=== PATIENT | female | born 1960 | race Caucasian/White ===

== ENCOUNTER → 2024-01-06 10:25 | Outpatient (REF) | payer MEDICARE, OTHER, SELFPAY | LOC: RCS 10:25 | PROVIDERS: ATTENDING PHYSICIAN Internal Medicine Cardiovascular Disease; FAMILY PHYSICIAN Family Medicine | DX: R03.0 Elevated blood-pressure reading, without diagnosis of hypertension (principal); R06.09 Other forms of dyspnea | CPT/HCPCS: 93017 ==

== ENCOUNTER → 2024-01-14 08:51 | Outpatient (REF) | payer MEDICARE, SELFPAY | LOC: RCS 08:51 | PROVIDERS: ATTENDING PHYSICIAN Internal Medicine Cardiovascular Disease; FAMILY PHYSICIAN Family Medicine | DX: R03.0 Elevated blood-pressure reading, without diagnosis of hypertension (principal); R06.09 Other forms of dyspnea | CPT/HCPCS: 93306 ==

== ENCOUNTER → 2024-01-22 10:56 | Outpatient (REF) | payer MEDICARE, SELFPAY | LOC: WDC 10:56 | PROVIDERS: ATTENDING PHYSICIAN Family Medicine | DX: Z12.31 Encounter for screening mammogram for malignant neoplasm of breast (principal) | CPT/HCPCS: 77063; 77067 ==

== ENCOUNTER → 2024-02-20 07:45 | Outpatient (REF) | payer MEDICARE, SELFPAY | LOC: PAVMRI 07:45 | PROVIDERS: ATTENDING PHYSICIAN Orthopaedic Surgery Hand Surgery; FAMILY PHYSICIAN Family Medicine | DX: M75.122 Complete rotator cuff tear or rupture of left shoulder, not specified as traumatic (principal) | CPT/HCPCS: 73221 ==

== ENCOUNTER → 2024-03-10 12:00 | Outpatient (REF) | payer MEDICARE, SELFPAY | LOC: DHSLP 12:00 | PROVIDERS: ATTENDING PHYSICIAN Internal Medicine Critical Care Medicine; FAMILY PHYSICIAN Family Medicine | DX: G47.19 Other hypersomnia (principal); R06.83 Snoring | CPT/HCPCS: 95800 ==

== ENCOUNTER → 2024-04-19 16:13 | Outpatient (REF) | payer MEDICARE, SELFPAY | LOC: RAD 16:13 | PROVIDERS: ATTENDING PHYSICIAN Internal Medicine Critical Care Medicine; FAMILY PHYSICIAN Family Medicine | DX: F17.200 Nicotine dependence, unspecified, uncomplicated (principal); R05.3 Chronic cough | CPT/HCPCS: 71250 ==

== ENCOUNTER → 2024-08-17 07:17 | Outpatient (REF) | payer MEDICARE, SELFPAY ==
[2024-08-17 07:50] LABS: Urine Albumin Negative (Neg - Trace); Urine Bilirubin Negative (Negative); Urine Character Clear (Clear); Urine Color Yellow; Urine Glucose Negative (Negative); Urine Ketone Negative (Negative); Urine Leukocyte Negative (Negative); Urine Nitrite Negative (Negative); Urine Occult Blood Negative (Negative); Urine Urobilinogen Negative (Neg - 1+)
[2024-08-17 08:13] LABS: % Basophils 0.4 % (0-2); % Eosinophils 3.1 % (0-6); % Immature Granulocytes 0.4 % (0-0.5); % Lymphocytes 24.4 % (20.5-51.1); % Monocytes 6.6 % (1.7-9.3); % Neutrophils 65.1 % (42.2-75.2); Absolute Eosinophils 0.2 10^3/uL (0-0.7); Absolute Lymphocytes 1.2 10^3/uL (1.2-3.4); Absolute Monocytes 0.3 10^3/uL (0.1-0.6); Absolute Neutrophils 3.2 10^3/uL (1.4-6.5); Hematocrit 43.2 % (37.0-47.0); Mean Corp Hgb Conc. 34.7 g/dL (33.0-37.0); Nucleated Red Blood Cells % 0 %; Platelet Count 151 10^3/uL (130-400); Red Blood Cell Count 4.41 10^6/uL (4.20-5.40); Red Cell Dist. Width 12.2 % (11.5-14.5); White Blood Cell Count 4.9 10^3/uL (4.8-10.8)
[2024-08-17 08:46] LABS: ALT (SGPT) 39 U/L (0-35); AST (SGOT) 33 U/L (14-36); Albumin 4.4 g/dl (3.5-5.0); Alkaline Phosphatase 84 U/L (38-126); Blood Urea Nitrogen 15 mg/dl (7-17); Calcium 9.3 mg/dl (8.4-10.2); Carbon Dioxide 29 mmol/L (22-30); Chloride 101 mmol/L (98-107); Glucose 118 mg/dl (70-99); HDL Cholesterol 54 mg/dl; LDL Cholesterol, Calculated 120 mg/dl; Sodium 139 mmol/L (135-145); Total Cholesterol 209 mg/dl (50-199); Total Protein 7.2 g/dl (6.3-8.2); Triglyceride 177 mg/dl (10-149); Very Low Density Lipoprotein 35 mg/dl (0-30); eGFR > 60.00
[2024-08-17 09:13] LABS: TSH Reflex To Free T4 2.18 uIU/ml (0.47-4.68)
[2024-08-17 10:18] LABS: Glycohemoglobin (HgbA1c) 5.4 % (4.0-5.6)
== END ==
LOC: REG 07:17
PROVIDERS: ATTENDING PHYSICIAN Internal Medicine Cardiovascular Disease; FAMILY PHYSICIAN Family Medicine
DX: E78.2 Mixed hyperlipidemia (principal); R79.89 Other specified abnormal findings of blood chemistry; D75.1 Secondary polycythemia; E03.9 Hypothyroidism, unspecified
CPT/HCPCS: 36415; 80053; 80061; 81003; 83036; 84443; 85025

== ENCOUNTER 2024-10-17 17:31 | Emergency (ER) | payer MEDICARE, SELFPAY ==
[2024-10-17 17:33] VITALS: BP 174/108
[2024-10-17 17:36] LABS: Glucose - Point of Care 96 mg/dl (70-99)
[2024-10-17] MEDS: ASPIRIN 325 MG PO (18:06)
[2024-10-17] MEDS: PLAVIX 300 MG PO (18:06)
--- NOTE | 2024-10-17 18:14 | ED.GENMED ---
History of Present Illness
General
Chief Complaint: Numbness
Source: patient and family
Exam Limitations: none
Time Seen by Provider: 10/17/24 17:56
Nursing documentation reviewed up to this point in time: agreed with
History of Present Illness
History of Present Illness:
64-year-old female smoker presents with left hand numbness dropping things possible left facial weakness onset about 2 2 and half hours ago came to triage prehospital stroke alert was called symptoms are improving
If applicable-neuro sx onset
Onset of symptoms known: Yes
Date of onset of symptoms: 10/17/24
Time of onset of symptoms: 14:00
Date last time pt seen normal: 10/17/24
Time last time pt seen normal: 14:00
Past History
Past History
ED Past Medical History: Hypothyroidism
ED Past Surgical History: None
Patient has exhibited threatening behavior?: No
Social History
Tobacco: Smoker
Alcohol: Occasional
Drug: None
Personal:
Living: with family
Employment: Employed
Review of Systems
Review of Systems
Other source history: family
All Other Systems: Not applicable
Neurological: Reports other (Left facial weakness left hand numbness concern)
Phy Exam
Physical Exam
Physical Exam:
Physical Exam
General: no apparent distress, not acutely ill
Neck: No tongue
Heart: s1/s2 regular rate and rhythm, no murmur. equal radial pulses.
Lungs: no acute respiratory distress. clear bilaterally
Abdomen: Not tender
Neuro: alert and oriented. Mild left hand weakness
Skin: no rash
Psychiatric: well kept. interactive and cooperative
Extremities: no edema
Course
Orders/Labs/Results
Orders:
Orders
10/17/24 17:38
CT HEAD STROKE ALERT W/o Cont Urgent
Comment:
Reason For Exam: left arm numbness
10/17/24 17:57
Aspirin 325 mg PO NOW STA
Clopidogrel Bisulfate [Plavix] 300 mg PO NOW STA
10/17/24 18:04
CT HEAD/NECK ANG STROKE ALERT Urgent
Comment:
Reason For Exam: left arm
10/17/24 18:06
Consult Neurology [NEUROLOGY CONSULT] Urgent
Consulting Provider: Roque Márquez
Was physician already notified: Yes
10/17/24 18:19
Cardiac Monitoring- Treatment ONCE
10/17/24 18:20
Electrocardiogram (*1) Stat
Reason for Study: Other
Other Reason for Exam: neuro symptoms
EKG- Treatment ONCE
10/17/24 18:22
Complete Blood Count/With Diff Urgent
Comprehensive Metabolic Panel Urgent
Troponin I Urgent
10/17/24 18:43
Labetalol HCl [Trandate] 10 mg IV NOW STA
Abnormal Lab Results
10/17/24
18:22
RBC 4.12 L 10^6/uL
(4.20-5.40)
MCH 34.2 H pg
(27.0-31.0)
Chloride 108 H mmol/L
(98-107)
10/17/24 18:22
10/17/24 18:22
Vital Signs
Initial and Last Documented VS:
Initial Vital Signs
Temp Pulse Resp BP Pulse Ox
98.4 F 90 16 174/108 98
10/17/24 17:33 10/17/24 17:33 10/17/24 17:33 10/17/24 17:33 10/17/24 17:33
Last Documented Vital Signs
Temp Pulse Resp BP Pulse Ox
98.4 F 78 23 162/101 98
10/17/24 17:33 10/17/24 19:02 10/17/24 18:45 10/17/24 18:46 10/17/24 19:02
MDM/Problems Addressed
Differential Diagnosis Includes:
CVA TIA radiculopathy seizure
MDM/Problems Addressed:
Left hand weakness
Chronic conditions affecting care:
Smoker
Acute Exacerbation and/or Progression of Chronic Illness:
Smoker
*Critical Care Note
Total Time (30-74mins, 75-104mins- exclusive of procedures): 30
Update Note
Update Note:
Update symptoms are mild not debilitating, improving here shared decision making with myself patient and neurologist have elected not to treat with TNK, patient would like to go home will check CT angiogram, if no large vessel occlusion carotids are
clear consideration for discharge on a statin aspirin and Plavix
7:08 PM reviewed with neurology okay to go home reviewed with patient she is feeling at her baseline
Clear speech no facial palsy no hand weakness strongly encouraged her to stop smoking
ED Attending Note
-
Portions of this chart may have been created with voice recognition software.� Occasional wrong word or��sound alike� substitutions may have occurred due to the inherent limitations of voice recognition software.
Discharge Plan
Departure
Patient Disposition: Home (Routine Discharge)
Date of Disposition: 10/17/24
Time of Disposition: 19:07
Patient with high blood pressure during this ER visit?: Yes
Condition: Good
Discharge Problem:
Stroke
Prescriptions:
New
clopidogrel [Plavix] 75 mg tablet
75 mg PO DAILY Qty: 30 3RF
atorvastatin 80 mg tablet
80 mg PO DAILY Qty: 30 2RF
amlodipine [Norvasc] 5 mg tablet
5 mg PO DAILY Qty: 30 2RF
No Action
citalopram 20 MG tablet
20 mg PO DAILY
levothyroxine 112 MCG tablet
112 mcg PO DAILY
atorvastatin 40 mg Tablet
40 mg PO DAILY
ibuprofen 200 mg Tablet
400 mg PO Q6HPRN PRN (Reason: mild pain)
Referrals:
Costa Pandya, DO [Family Provider] - Next open appointment
Activity Restrictions/Additional Instructions:
You should stop smoking
Start aspirin 81 mg a day
Plavix 75 mg a day
Atorvastatin 80 mg a day
Norvasc 5 mg a day
Return to the ER immediately if recurrent or worsening symptoms
Call your family doctor tomorrow to arrange follow-up care
Interventions
Interventions:
*Risk Screen - Suicide Last Done: 10/17/24 17:33
*General Assessment Last Done: 10/17/24 17:33
*Neglect/Abuse Screening Last Done: 10/17/24 18:38
*ED- Fall Risk Assessment Last Done: 10/17/24 18:38
*ED COVID-19 Vaccine History Last Done: 10/17/24 18:38
ED- Neurological Assessment Last Done: 10/17/24 18:38
Discharge Date and Time
Print Language: CITIZEN OF [place]
[2024-10-17 18:36] LABS: % Basophils 0.7 % (0-2); % Immature Granulocytes 0.3 % (0-0.5); % Lymphocytes 23.2 % (20.5-51.1); % Monocytes 5.3 % (1.7-9.3); % Neutrophils 68.5 % (42.2-75.2); Absolute Basophils 0.1 10^3/uL (0-0.2); Absolute Eosinophils 0.2 10^3/uL (0-0.7); Absolute Lymphocytes 1.7 10^3/uL (1.2-3.4); Absolute Monocytes 0.4 10^3/uL (0.1-0.6); Hemoglobin 14.1 g/dL (12.0-16.0); Mean Corp Hgb Conc. 36.2 g/dL (33.0-37.0); Mean Corpuscular Hgb 34.2 pg (27.0-31.0); Mean Corpuscular Volume 94.7 fL (81.0-99.0); Mean Platelet Volume 9.8 fL (7.4-10.4); Nucleated Red Blood Cells % 0 %; Platelet Count 161 10^3/uL (130-400); Red Blood Cell Count 4.12 10^6/uL (4.20-5.40); Red Cell Dist. Width 12.7 % (11.5-14.5); White Blood Cell Count 7.3 10^3/uL (4.8-10.8)
[2024-10-17 18:45] VITALS: BP 162/101
[2024-10-17] MEDS: TRANDATE 10 MG IV (18:46)
--- NOTE | 2024-10-17 18:46 | CON.NEURO ---
Neuro Assessment/Plan
Assessment
suspect mild stroke vs TIA, NIHSS 0, advised no TNK as patient symptoms are not disabling.
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
Head CT imgs rev'd, no bleed
CTA no LVO, minimal carotid plaque
Plan
load ASA 324 and start aspirin 81 daily
load Plavix 300 and start 21 days of plavix
continue Lipitor 40
as she recently had cardiac workup, no need to repeat
follow up with PCP
Consultation
Order
Date of Consultation: 10/17/24
Requesting Provider: Devan Moreno
Reason for Consult: Stroke alert
Subjective/Objective
Subjective Data
Date of Service: October 17, 2024
She is a 64 year old woman, reports mild chronic left sided weakness due to 'arthritis' at 2 pm sudden onset left hand weakness tingling numbness, dropping things while cooking. no blood thinners. she is a smoker. recently had extensive cardiac
workup including echo, holter. had carotid screening 2 years ago.
Objective Data
Vital Signs
Temp Pulse Resp BP Pulse Ox
36.9 C 77 19 162/101 98
10/17/24 17:33 10/17/24 18:15 10/17/24 18:15 10/17/24 18:45 10/17/24 18:38
Lab Results
10/17/24 18:22
Patient Allergies
No Known Allergies Allergy (Verified 10/17/24 17:36)
CVA Assessment
Onset of Stroke Symptoms
Onset of symptoms known: Yes
Date of onset of symptoms: 10/17/24
Time of onset of symptoms: 14:00
Physical Exam
-
AAOx3, speech clear, language intact
VFF, EOMI, face symmetric
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
sensation intact pin/temp
Medications
-
Home Medications
�Medication �Instructions �Recorded
citalopram 20 mg tablet 20 mg PO DAILY 04/20/21
levothyroxine 112 mcg tablet 112 mcg PO DAILY 04/20/21
atorvastatin 40 mg tablet 40 mg PO DAILY 10/17/24
ibuprofen 200 mg tablet 400 mg PO Q6HPRN PRN mild pain 10/17/24
[2024-10-17 18:55] LABS: ALT (SGPT) 24 U/L (0-35); AST (SGOT) 22 U/L (14-36); Alkaline Phosphatase 80 U/L (38-126); Blood Urea Nitrogen 15 mg/dl (7-17); Calcium 9.1 mg/dl (8.4-10.2); Carbon Dioxide 24 mmol/L (22-30); Chloride 108 mmol/L (98-107); Glucose 88 mg/dl (70-99); Potassium 3.6 mmol/L (3.5-5.1); Sodium 140 mmol/L (135-145); Total Bilirubin 0.6 mg/dl (0.2-1.3); Total Protein 6.9 g/dl (6.3-8.2); eGFR > 60.00
[2024-10-17 19:00] LABS: Troponin I < 0.012 ng/ml
== END 2024-10-17 19:28 | disposition home or self-care (01) ==
LOC: EMR 17:31
PROVIDERS: CONSULT PHYSICIAN Psychiatry & Neurology Clinical Neurophysiology; EMERGENCY PHYSICIAN Emergency Medicine; FAMILY PHYSICIAN Family Medicine
DX: I63.9 Cerebral infarction, unspecified (principal); E03.9 Hypothyroidism, unspecified; F17.200 Nicotine dependence, unspecified, uncomplicated
CPT/HCPCS: 99291; 96374; 70450; 70496; 70498; 80053; 82962; 84484; 85025; 93005; Q9967

== ENCOUNTER 2024-10-19 10:47 | Inpatient (IN) | payer MEDICARE, SELFPAY ==
[2024-10-17 21:23] VITALS: BP 204/114
--- NOTE | 2024-10-17 22:40 | ED.CVA ---
History of Present Illness
General
Chief Complaint: CVA/TIA Symptoms
Source: patient, records, previous radiology exam and previous hospital records
Exam Limitations: none
Time Seen by Provider: 10/17/24 22:31
Nursing documentation reviewed up to this point in time: agreed with
Onset of Stroke Symptoms
Onset of symptoms known: Yes
Date of onset of symptoms: 10/17/24
Time of onset of symptoms: 20:00
Time pt last seen normal is known: Yes
Date last time pt seen normal: 10/17/24
Time last time pt seen normal: 20:00
History of Present Illness
History of Present Illness:
64-year-old female seen by myself and neurology earlier today stroke alert thought to have a small stroke, not thought to be a TNK candidate patient elected to go home after exhaustive workup here she got home had some clumsiness numbness weakness
of her left arm which has improved, here blood pressure is elevated, she elected to come back in and get evaluated and admitted no headache no nausea vomiting
Past History
Past History
ED Past Medical History: Hypothyroidism
ED Past Surgical History: None
Patient has exhibited threatening behavior?: No
Social History
Tobacco: Smoker
Alcohol: Occasional
Drug: None
Personal:
Living: with family
Employment: Employed
Review of Systems
Review of Systems
All Other Systems: Not applicable
Neurological: Denies headache, weakness or numbness
Phy Exam
Physical Exam
Physical Exam:
Physical Exam
General: no apparent distress, not acutely ill
Neck: No jaw
Heart: s1/s2 regular rate and rhythm, no murmur. equal radial pulses.
Lungs: no acute respiratory distress. clear bilaterally
Neuro: alert and oriented. Minimal weakness of the left arm
Skin: no rash
Psychiatric: well kept. interactive and cooperative
Extremities: no edema.
Scores
NIH Stroke Score
Level of Consciousness: 0 - Alert
LOC Questions: 0-Answers both correctly
LOC Commands: 0-Performs both correctly
Best Horizontal Gaze: 0-Normal
Visual Garcia: 0=Normal, no visual loss
Facial Palsy: 0=Normal, symmetrical
Motor - Right Arm: 0=No drift 10 seconds
Motor - Left Arm: 1=Drift < 10 seconds
Motor - Right Le-No drift 5 seconds
Motor - Left Le-No drift 5 seconds
Limb Ataxia: 0-Absent
Sensation: 0-Normal
Best Language: 0-No aphasia
Dysarthria: 0-Normal
Extinction and Inattention: 0-No abnormality
Total Score:: 1
Course
Orders/Labs/Results
Orders:
Orders
10/17/24 21:25
ECG [Electrocardiogram (*1)] Urgent
Reason for Study: Chest Pain
EKG- Treatment ONCE
10/17/24 22:39
Labetalol HCl [Trandate] 20 mg IV NOW STA
10/17/24 23:00
Flush (0.9% Sodium Chloride) [Flush (Nss)] See Dose Instructions IV PER PROTOCOL
10/17/24 23:11
Admit/Transfer Patient As Directed
Co-Sign Provider:
Level of Care: Inpatient admission
Assign to:: Telemetry
Physician / Group: [email or web address]
Diagnosis: HTN urgency
Reason for Telemetry: CVA/TIA
Date to Stop Telemetry: 10/20/24
Time to Stop Telemetry: 11:00
Reason for Hospitalization: HTN urgency
Expected length of stay greater than two midnights?: Yes
ELOS- Estimated Length of Stay in days: 1
I certify the patient meets the requirements for IP care: Yes
10/17/24 23:13
Code Status As Directed
Resuscitation Status: Full Code
10/20/24 11:00
DC Protocol for Telemetry ONCE
Vital Signs
Initial and Last Documented VS:
Initial Vital Signs
Temp Pulse Resp BP Pulse Ox
98.2 F 91 20 204/114 98
10/17/24 21:23 10/17/24 21:23 10/17/24 21:23 10/17/24 21:23 10/17/24 21:23
Last Documented Vital Signs
Temp Pulse Resp BP Pulse Ox
98.2 F 73 22 130/67 97
10/17/24 21:23 10/17/24 23:01 10/17/24 23:01 10/17/24 23:01 10/17/24 23:01
MDM/Problems Addressed
Differential Diagnosis Includes:
Sputtering TIA stroke symptoms seizure hypertensive urgency hypertensive emergency
MDM/Problems Addressed:
Left arm weakness
Chronic conditions affecting care:
Smoker
Acute Exacerbation and/or Progression of Chronic Illness:
Smoker
*Radiology
Radiology exam reviewed: radiology read reviewed
*Pulse Oximetry
Patient hypoxic: no
*Continuous Process Coffee Roaster Interpretation
Rate: normal
Interpretation: normal
Heart Rate: 88
Rhythm: sinus
*Critical Care Note
Total Time (30-74mins, 75-104mins- exclusive of procedures): Not Applicable
Data Reviewed
Review of Other/Old Records Reveals: Labs
Source: patient and records
Update Note
Update Note:
Update patient returns with sputtering strokelike symptoms could be peripheral neuropathy versus central, blood pressure is up, will treat with labetalol I do not think repeating her labs or CT would belt changer, again I do not think she is a
TNK candidate symptoms are mild
ED Attending Note
-
Portions of this chart may have been created with voice recognition software.� Occasional wrong word or��sound alike� substitutions may have occurred due to the inherent limitations of voice recognition software.
Discharge Plan
Departure
Patient Disposition: Admit
Date of Disposition: 10/17/24
Time of Disposition: 22:44
Admit to: Telemetry
Presentation/result/management discussed w/ accepting MD/DO: Hospitalist
Patient with high blood pressure during this ER visit?: Yes
Condition: Good
Discharge Problem:
Stroke
Prescriptions:
No Action
citalopram 20 MG tablet
20 mg PO DAILY
levothyroxine 112 MCG tablet
112 mcg PO DAILY
atorvastatin 40 mg Tablet
40 mg PO DAILY
ibuprofen 200 mg Tablet
400 mg PO Q6HPRN PRN (Reason: mild pain)
clopidogrel [Plavix] 75 mg tablet
75 mg PO DAILY Qty: 30 3RF
atorvastatin 80 mg tablet
80 mg PO DAILY Qty: 30 2RF
amlodipine [Norvasc] 5 mg tablet
5 mg PO DAILY Qty: 30 2RF
Interventions
Interventions:
*Risk Screen - Suicide Last Done: 10/17/24 22:51
*General Assessment Last Done: 10/17/24 21:23
*Neglect/Abuse Screening Last Done: 10/17/24 22:51
*ED- Fall Risk Assessment Last Done: 10/17/24 22:51
*ED COVID-19 Vaccine History Last Done: 10/17/24 22:51
ED- Pulmonary Assessment Last Done: 10/17/24 22:52
ED- Neurological Assessment Last Done: 10/17/24 22:52
ED- Cardiac Assessment Last Done: 10/17/24 22:52
ED Swallowing Screen Last Done: 10/17/24 22:52
Discharge Date and Time
Print Language: [place]
[2024-10-17 22:47] VITALS: BP 129/68
[2024-10-17 23:01] VITALS: BP 130/67
--- NOTE | 2024-10-17 23:04 | HPS.HSE ---
Family Physician
-
Family Physician: Costa Pandya
Chief Complaint
-
Retuned to ER for uncontrol HTN
History of Present Illness
HPI
64F smoker HX HTN, HLD evaluated earlier at ER for pre hospital stroke alert ( sudden onset left hand weakness tingling numbness, dropping things while cooking) She was no blood thinners
- not thought to be a TNK candidate patient elected to go home after exhaustive workup
- retured to ER after she got home had some clumsiness numbness weakness of her left arm which has improved
- blood pressure is elevated
Of note:
Recently had extensive cardiac workup including echo, holter. had carotid screening 2 years ago.
ROS:
- no RIOS
- no nausea
- no vomiting
Medical History
Past Medical History
Past Medical History: Reports HTN, Hypercholesterolemia and Hypothyroidism
Past Surgical History: Reports None
Social History
Tobacco: Smoker
Alcohol: None
Drug: None
Family History
Family History: Not pertinent
Allergies / Home Medications
Allergies reflects when Allergies were last updated in [facility].
Home Medications with original date entered in [facility]
Allergy/Medication List:
Allergies
Allergy/AdvReac Type Severity Reaction Status Date / Time
No Known Allergies Allergy Verified 10/17/24 21:23
Home Medications
citalopram 20 mg tablet 20 mg PO DAILY 04/20/21
levothyroxine 112 mcg tablet 112 mcg PO DAILY 04/20/21
amlodipine 5 mg tablet (Norvasc) 5 mg PO DAILY #30 tabs 10/17/24
atorvastatin 40 mg tablet 40 mg PO DAILY 10/17/24
atorvastatin 80 mg tablet 80 mg PO DAILY #30 tabs 10/17/24
clopidogrel 75 mg tablet (Plavix) 75 mg PO DAILY #30 tabs 10/17/24
ibuprofen 200 mg tablet 400 mg PO Q6HPRN PRN mild pain 10/17/24
Review of Systems
-
Constitutional: Reports No Symptoms
EENT: Reports No Symptoms
Respiratory: Reports No Symptoms
Cardiac: Reports No Symptoms
Abdomen/GI: Reports No Symptoms
: Reports No Symptoms
Musculoskeletal: Reports No Symptoms
Skin: Reports No Symptoms
Neurological: Reports No Symptoms
Endocrine: Reports No Symptoms
Hematologic/Lymphatic: Reports No Symptoms
Psych: Reports No Symptoms
Physical Exam
Vital Signs
Vital Signs
Temp Pulse Resp BP Pulse Ox
98.2 F 91 20 129/68 95
10/17/24 21:23 10/17/24 21:23 10/17/24 21:23 10/17/24 22:47 10/17/24 22:48
Physical Exam
General: Well Developed, Well Nourished and No Apparent Distress
HEENT: NormoCephalic, Moist mucous membranes and Atraumatic
Respiratory: Clear
Cardiac: S1/S2 and Regular Rhythm; No Murmur or Rub
GI: Soft, Non Tender, Non Distended and Normal Bowel Sounds; No Organomegaly
Rectal: Deferred by Provider
Musculoskeletal: No Clubbing, No Cyanosis and No Edema
Skin: No Rash
Neuro: Other (see NIHS score )
Laboratory Results
-
am labs reviewd
Data Reviewed
-
CT Scan: Report Reviewed by me
Lab Data: Labs Reviewed by me
Old Records: Reviewed
Impression/Plan
-
Vital Signs
Temp Pulse Resp BP Pulse Ox
98.2 F 91 20 129/68 95
10/17/24 21:23 10/17/24 21:23 10/17/24 21:23 10/17/24 22:47 10/17/24 22:48
10/17/24
21:23 10/17/24
22:47
Temp 98.2 F
Pulse 91
Blood pressure 204/114 129/68
SaO2 98
Oxygen Mode of Delivery Room air
Laboratory Tests
10/17/24
18:22
WBC 7.3
Hgb 14.1
Plt Count 161
Sodium 140
Potassium 3.6
Creatinine 0.8
eGFR > 60.00
Troponin I < 0.012
NIH on my exam
Level of Consciousness: 0 - Alert
LOC Questions: 0-Answers both correctly
LOC Commands: 0-Performs both correctly
Best Horizontal Gaze: 0-Normal
Visual Garcia: 0=Normal, no visual loss
Facial Palsy: 0=Normal, symmetrical
Motor - Right Arm: 0=No drift 10 seconds
Motor - Left Arm: 0=Drift < 10 seconds
Motor - Right Le-No drift 5 seconds
Motor - Left Le-No drift 5 seconds
Limb Ataxia: 0-Absent
Sensation: 0-Normal
Best Language: 0-No aphasia
Dysarthria: 0-Normal
Extinction and Inattention: 0-No abnormality
Total Score:: 0
10/17/24 CT HEAD STROKE ALERT W/o Cont
No evidence of acute intracranial abnormality
10/17/24 CTA H & N
No evidence for hemodynamically significant stenosis involving the common carotid arteries, carotid bulbs, or proximal internal carotid arteries bilaterally.
Normal appearance of the anterior cerebral and middle cerebral arteries bilaterally.
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
No evidence for intracranial aneurysm.
Decreased density of the thyroid gland, suggesting hypothyroidism. Please correlate clinically.
Percent stenosis is calculated using NASCET criteria.
01/14/24 TTE
LVEF 70-75
No regional wall motion abnormalities are seen.
Normal right ventricular size and function.
No significant valvular disease.
No significant change since the prior study of 10/07/2018.
NO PRIOR hospitalist admission:
ASSESSMENT & PLAN
Suspect mild stroke vs TIA
NIHSS 0
- s/p DAPL loading dose upon first ER visit this fternoon
- no TNK per Neuro on earlier visit
- NEG HCT for bleed
- CTA no LVO, minimal carotid plaque
- c/w aspirin 81 daily
- 21 more days of Plavix
- continue Lipitor 40
- Neuro consult
HTN urgency: spontaneously improved BP without IV labetalol
Benign HTN
- c/w Amlodipine
HLD
- c/w Atorvastatin 40 HS
Hypothyroid on LT4
Smoking
- cont with cessation strongly advised
DVT Px: SCD
Full code
OBS TLM
[2024-10-17 23:30] VITALS: BP 136/71
[2024-10-18] VITALS (11 sets, daily range): BP systolic 112–140; BP diastolic 63–95; PULSE 64–66; O2SAT 97–98; BMI 34.2
--- NOTE | 2024-10-18 01:45 | PTCARENOTE ---
Pt arrived from ED via stretcher. oob with steady gait. no acute distress. vss. oriented to room. call aquino within reach.
[2024-10-18] MEDS: SYNTHROID 112 MCG PO (06:03)
[2024-10-18] MEDS: PLAVIX 75 MG PO (07:51)
[2024-10-18] MEDS: LOW STRENGTH ASPIRIN 81 MG PO (07:51)
[2024-10-18] MEDS: CELEXA 20 MG PO (07:51)
[2024-10-18] MEDS: LIPITOR 80 MG PO (07:51)
[2024-10-18] MEDS: NORVASC 5 MG PO (07:51)
--- NOTE | 2024-10-18 08:35 | CON.NEURO4 ---
Addendum entered and electronically signed by Werner Buchanan MD 10/18/24 17:07:
Studies reviewed.
I have personally examined the patient. I reviewed and agree with the VAMP CREASER's Note.
My addenda:
Awake, alert, interactive. No acute distress.
Speech intact.
Follows 2-step requests w/o difficulty. No tremor.
Extra-ocular movements grossly intact.
Facial movements full and symmetric. Hearing intact to normal conversational volume.
Normal UE movements bilaterally.
Neck: full ROM.
Chest: no dyspnea
Heart: no JVD
Ext: (-) Clubbing, (-) Cyanosis, (-) Edema
IMPRESSIONS/RECOMMENDATIONS:
Abrupt onset of left upper extremity weakness followed by improvement then recurrence and again improvement
MRI of brain demonstrated peripheral right parietal acute ischemic stroke
Tobacco cessation recommended
Provide for normotension
Continue dual antiplatelet therapy and after 21 days, discontinue clopidogrel with lifelong aspirin
Would repeat echocardiogram (last performed in February) if needed by primary service
Replace vitamin B12
D/W patient
All questions answered.
Will continue to follow as needed.
Original Note:
Documented by User: Nuha Chaudhary NP 10/18/24 12:53
Consultation - Neurology 4
-
CONSULTING PHYSICIAN: Werner Buchanan MD
REFERRING PHYSICIAN: ER/Dr. Sibley
DICTATED BY: AILYN Nelson
DATE/TIME OF REQUEST: 10/17/24
DATE/TIME OF CONSULTATION: 10/18/24
Reason for Consultation: Left arm weakness and paresthesias
History of Present Illness:
This is a 64-year-old right-handed female who has presented to the hospital on 10/17/24 with report of left hand weakness and paresthesias. Patient reports that yesterday (10/17/24) she had a posterior headache which was unusual. This resolved after
about one hour, then at 1400 while cooking, she suddenly she developed LUE weakness and paresthesias and was drooping objects from her left hand. The numbness involved her entire left hand and extended up her arm almost to her shoulder. On arrival
in the ER blood pressure was 174/108. CT head and CTA head/neck were obtained and were negative for any acute findings. She was not a candidate for TNK/IAT due to NIHSS 0 and no LVO. She felt back to baseline and opted to leave after being loaded
with DAPT. She returned home and reports that around 2099 her LUE weakness and paresthesias started again, prompting her to return back to the ER. Blood pressure was then 204/114. NIHSS was 1 for LUE drift. She was still not a candidate for TNK/IAT
due to low NIHSS and outside of time window. Today (10/18/24), patient reports feeling at her baseline again. She denies any headache, dizziness, vision changes, speech/swallow difficulty, numbness, weakness, chest pain, palpitations, and shortness
of breath. She reports having chronic neck pain but this has not been bothering her in the past few days. She also notes having arthritis in her left shoulder and wrist. She denies any history of TIA, stroke, or events like this in the past and she
was not taking any blood thinning medications.
Past Medical History: HTN, HLD, hypothyroidism, TMJ, arthritis, GERD, shingles
Surgical History: Carpal tunnel release
Family History: Reviewed and noncontributory.
Social History: Current smoker. Occasoinal alcohol. Denies illicit drug use.
Allergies: No known allergies.
Home Medications: See below.
Review of Symptoms:
Patient denies any fever, headache, chest pain, shortness of breath, GI or symptoms.
�Per the HPI.�All systems are reviewed negative except above.
Physical Exam:
The patient is afebrile, abdomen is nondistended, breathing is unlabored, skin is warm and dry, no edema.
NIH Stroke Scale:
I performed the NIH stroke scale on the patient on 10/18/24 at 1015. The patient scored 0 points on the NIH stroke scale assessment, which were assigned as follows: See below.
Neurologic Examination:
The patient is awake, alert and oriented x 3. She is able to follow commands and answer questions appropriately. There is no aphasia or dysarthria. On cranial nerve assessment, pupils are 3 mm bilateral, round and reactive to light and
accommodation. Visual garcia are full. Extraocular movements are intact. Facial sensations are intact and bilaterally symmetrical, there is no facial asymmetry. Hearing is intact bilaterally to normal conversation volume. Tongue palate and uvula are
midline. Sternocleidomastoid strengths are full bilaterally. Motor strengths are 5/5 bilateral upper and lower extremities on medical research [place] scale. There is no drift or involuntary movement noted. Deep tendon reflexes are 2+ bilateral
upper and lower extremities and Babinski is absent bilaterally. Sensations of touch, temperature and vibration are intact and bilaterally symmetrical. There was no extinction noted on double simultaneous stimulation. Coordination is intact by finger
to nose bilaterally.
Lab Results: See below.
Neuro Imaging:
1. CT Head 10/17/24: No evidence of acute intracranial abnormality. ASPECT score: 10.
2. CTA Head/Neck 10/17/24: No evidence for hemodynamically significant stenosis involving the common carotid arteries, carotid bulbs, or proximal internal carotid arteries bilaterally. Normal appearance of the anterior cerebral and middle cerebral
arteries bilaterally. 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 No evidence for intracranial aneurysm.
3. MRI brain 10/18/24: 1.4 cm ACUTE ISCHEMIC INFARCT in the cortical luis matter of the posterior-inferior RIGHT FRONTAL LOBE containing mild cytotoxic edema. Mild diffuse cerebral and cerebellar volume loss. Hypoplasia of the intracranial vertebral
and basilar arteries. Small disc herniations in the cervical spine causing minimal spinal cord compression.
Differentials for the patient's presentation include:
1. Acute right frontal lobe ischemic infarct.
2. Hypertensive urgency.
3. Hyperlipemia.
4. Nicotine dependence.
Patient has the following risk factors for their symptoms: HTN, HLD, smoking
IV Tenecteplase/IAT candidacy: Not a candidate due to low NIHSS, no LVO.
Recommendations:
-Continue DAPT with aspirin 81mg and clopidogrel 75mg daily for 21 days. After 21 days, discontinue clopidogrel and continue aspirin 81mg daily only, indefinitely.
-Permissive hypertension SBP<220, DBP<120 until 1400 today, then goal normotension.
-TTE pending.
-LDL goal <70. LDL is 97. Continue atorvastatin 80mg daily, increased from 40mg daily.
-Goal normoglycemia, hbA1c is 5.4.
-Vitamin B12 level is low at 252. Start cyanocobalamin 1000mcg PO daily.
-PT/OT evaluations.
-NIHSS and neurological checks per unit guidelines.
-Provide patient with a stroke education packet.
-Smoking cessation counseling.
-DVT prophylaxis.
-Patient should follow-up with Neurology as an outpatient in 4-6 weeks.
Discussed patient care with: Dr. Buchanan, the patient
Vital Signs and Labs
-
Vital Signs and Labs:
Vital Signs
Temp Pulse Resp BP Pulse Ox
97.9 F 63 16 125/74 97
10/18/24 07:27 10/18/24 07:51 10/18/24 07:27 10/18/24 07:51 10/18/24 07:27
Lab Results
10/18/24 09:43
10/18/24 09:43
Sodium 138 mmol/L (135-145) 10/18/24 09:43
Potassium 4.3 mmol/L (3.5-5.1) 10/18/24 09:43
BUN 13 mg/dl (7-17) 10/18/24 09:43
Glucose 100 mg/dl (70-99) H 10/18/24 09:43
Calcium 9.2 mg/dl (8.4-10.2) 10/18/24 09:43
LDL Cholesterol, Calc 97 mg/dl 10/18/24 09:43
Vitamin B12 252 pg/ml (239-931) 10/18/24 09:43
Medications
-
Active Medications
Generic Name Dose Route Start Last Admin
Trade Name Freq PRN Reason Stop Dose Admin
Acetaminophen 650 mg 10/18/24 01:42
Acetaminophen 650 Mg Rectal Suppository RECTAL 11/15/24 01:41
Q4HPRN PRN
RIOS, mild pain, or temp >100.4F
Acetaminophen 650 mg 10/18/24 01:42
Acetaminophen 325 Mg Tablet PO 11/15/24 01:41
Q4HPRN PRN
RIOS, mild pain, or temp >100.4F
Amlodipine Besylate 5 mg 10/18/24 08:00 10/18/24 07:51
Amlodipine 5 Mg Tablet PO 11/15/24 07:59 5 mg
DAILY RAINER Administration
Aspirin 81 mg 10/18/24 08:00 10/18/24 07:51
Aspirin 81 Mg Chewable Tablet PO 11/15/24 07:59 81 mg
DAILY RAINER Administration
Atorvastatin Calcium 80 mg 10/18/24 08:00 10/18/24 07:51
Atorvastatin (Lipitor) 80 Mg Tablet PO 11/15/24 07:59 80 mg
DAILY RAINER Administration
Citalopram Hydrobromide 20 mg 10/18/24 08:00 10/18/24 07:51
Citalopram 20 Mg Tablet PO 11/15/24 07:59 20 mg
DAILY RAINER Administration
Clopidogrel Bisulfate 75 mg 10/18/24 08:00 10/18/24 07:51
Clopidogrel 75 Mg Tablet PO 11/15/24 07:59 75 mg
DAILY RAINER Administration
Cyanocobalamin 1,000 mcg 10/18/24 13:00
Cyanocobalamin 1,000 Mcg Tablet PO 11/15/24 12:59
DAILY RAINER
Levothyroxine Sodium 112 mcg 10/18/24 06:00 10/18/24 06:03
Levothyroxine 112 Mcg Tablet PO 11/15/24 05:59 112 mcg
DAILY @ 0600 RAINER Administration
Sodium Chloride 0 flush 10/17/24 23:00
Sodium Chloride 0.9% (Flush) Syringe IV 11/14/24 22:59
PER PROTOCOL RAINER
Home Medications
�Medication �Instructions �Recorded
citalopram 20 mg tablet 20 mg PO DAILY 04/20/21
levothyroxine 112 mcg tablet 112 mcg PO DAILY 04/20/21
amlodipine 5 mg tablet (Norvasc) 5 mg PO DAILY #30 tabs 10/17/24
atorvastatin 40 mg tablet 40 mg PO DAILY 10/17/24
atorvastatin 80 mg tablet 80 mg PO DAILY #30 tabs 10/17/24
clopidogrel 75 mg tablet (Plavix) 75 mg PO DAILY #30 tabs 10/17/24
ibuprofen 200 mg tablet 400 mg PO Q6HPRN PRN mild pain 10/17/24
NIH Stroke Score
Subsequent NIH Scale
Date of Subsequent NIH Scale: 10/18/24
Time of Subsequent NIH Scale: 10:15
NIH Stroke Score
Level of Consciousness: 0 - Alert
LOC Questions: 0-Answers both correctly
LOC Commands: 0-Performs both correctly
Best Horizontal Gaze: 0-Normal
Visual Garcia: 0=Normal, no visual loss
Facial Palsy: 0=Normal, symmetrical
Motor - Right Arm: 0=No drift 10 seconds
Motor - Left Arm: 0=No drift 10 seconds
Motor - Right Le-No drift 5 seconds
Motor - Left Le-No drift 5 seconds
Limb Ataxia: 0-Absent
Sensation: 0-Normal
Best Language: 0-No aphasia
Dysarthria: 0-Normal
Extinction and Inattention: 0-No abnormality
Total Score:: 0
Modified [place] (mRS) Score
Modified [place] Scale (mRS): No symptoms
Score: 0
Alteplase Contraindication
Inclusion and Exclusion criteria reviewed: Yes

Documented by User: Werner Buchanan MD 10/18/24 17:04
NIH Stroke Score
NIH Stroke Score
Total Score:: 0
Modified [place] (mRS) Score
Score: 0
--- NOTE | 2024-10-18 09:01 | W.PN.HOSP.TC ---
Today's Communication/Plan
-
Discharge pending brain MRI results
Assessment / Plan
Assessment / Plan
64-year-old female past medical history of hypertension, hyperlipidemia presented sudden onset left hand. She was not candidate elected to go home after exhaustive workup came back negative. She returned to the ER later she had some clumsiness and
continued that has since improved. Head CT, head and neck CTA all negative for acute etiology of left arm weakness.
Suspect mild stroke vs TIA
NIHSS 0
-received DAPL loading dose in ED during first visit
-No TNK per prior Neuro eval
-Head CT and head and neck CTA (-) for acute etiology
-Continue ASA 81 daily and 21 days plavix
-Continue atorvastatin
-Neurology consulted
-MR brain pending
HTN urgency
-Spontaneously improved without IV labetalol
-Cont amlodipine
Hypothyroidism
-Cont levothyroxine
Smoking
-education on smoking cessation
Esophageal thickening noted on chest CT
-f/u with GI outpatient
DVT SCD
Full Code
Discharge today pending neuro consult
Anticipated Discharge: Today
Subjective/Interval History
-
Date of Service: October 18, 2024
Feeling well. Wants to go home.
Objective Data
-
Labs:
Laboratory Results
10/18/24 10/18/24
01:42 06:00
WBC Pending
Hgb Pending
Hct Pending
Plt Count Pending
Sodium Cancelled Pending
Potassium Cancelled Pending
Chloride Cancelled Pending
Carbon Dioxide Cancelled Pending
BUN Cancelled Pending
Creatinine Cancelled Pending
Glucose Cancelled Pending
Calcium Cancelled Pending
Total Bilirubin Cancelled Pending
AST Cancelled Pending
ALT Cancelled Pending
Alkaline Phosphatase Cancelled Pending
Vital Signs:
Vital Signs
Temp Pulse Resp BP Pulse Ox
97.9 F 63 16 125/74 97
10/18/24 07:27 10/18/24 07:51 10/18/24 07:27 10/18/24 07:51 10/18/24 07:27
Review of Systems
-
History Source: Patient
Constitutional: Reports No Symptoms
EENT: Reports No Symptoms Reported
Respiratory: Reports No Symptoms
Cardiac: Reports No Symptoms
Abdomen/GI: Reports No Symptoms
Musculoskeletal: Reports No Symptoms
Neuro: Reports No Symptoms
Physical Exam
-
General: Well Developed and Comfortable
HEENT: Normocephalic, PERRLA and Other ([place] (-) )
Respiratory: Clear to Auscultation
Cardiac: Regular Rhythm and S1/S2
GI: Soft, Nontender, Nondistended and Normal Bowel Sounds
Musculoskeletal: No Edema
Skin: Warm and Dry
Neuro: AO x 3, No Motor Deficits, Central Nerve's Intact and No Sensory Deficits; Negative Tremors, Slurred Speech or Facial Droop
Psych: Calm
[2024-10-18 10:09] LABS: Hematocrit 38.7 % (37.0-47.0); Hemoglobin 13.7 g/dL (12.0-16.0); Mean Corp Hgb Conc. 35.4 g/dL (33.0-37.0); Mean Corpuscular Hgb 33.7 pg (27.0-31.0); Mean Corpuscular Volume 95.3 fL (81.0-99.0); Mean Platelet Volume 9.8 fL (7.4-10.4); Platelet Count 148 10^3/uL (130-400); Red Blood Cell Count 4.06 10^6/uL (4.20-5.40); Red Cell Dist. Width 12.7 % (11.5-14.5); White Blood Cell Count 5.1 10^3/uL (4.8-10.8)
--- NOTE | 2024-10-18 10:09 | CM ---
Patient seen at bedside
IA completed
CM consult complete
Dx: htn urgency
MRI today
Lives with spouse in a 1 story home, 1 step to enter
PLOF: Independent
Denies DME
Denies VN/Rehab
PCP: Costa Pandya
[facility]ARMACY: [facility]
PLAN: Home, no needs anticipated when medically stable.
to transport
[2024-10-18 10:58] LABS: ALT (SGPT) 22 U/L (0-35); AST (SGOT) 21 U/L (14-36); Albumin 4.1 g/dl (3.5-5.0); Alkaline Phosphatase 87 U/L (38-126); Blood Urea Nitrogen 13 mg/dl (7-17); Calcium 9.2 mg/dl (8.4-10.2); Carbon Dioxide 25 mmol/L (22-30); Chloride 104 mmol/L (98-107); Estimated Creatinine Clearance 94 ml/min; Glucose 100 mg/dl (70-99); HDL Cholesterol 53 mg/dl; LDL Cholesterol, Calculated 97 mg/dl; Potassium 4.3 mmol/L (3.5-5.1); Sodium 138 mmol/L (135-145); Total Cholesterol 171 mg/dl (50-199); Total Protein 6.7 g/dl (6.3-8.2); Triglyceride 108 mg/dl (10-149); Very Low Density Lipoprotein 21 mg/dl (0-30); eGFR > 60.00
[2024-10-18 12:25] LABS: Folate 6.6 ng/ml (2.76-20); Vitamin B12 252 pg/ml (239-931)
[2024-10-18] MEDS: VITAMIN B-12 1000 MCG PO (13:18)
[2024-10-18] MEDS: TYLENOL 650 MG PO (13:32)
[2024-10-19 03:12] VITALS: BP 118/60
[2024-10-19] MEDS: SYNTHROID 112 MCG PO (05:53)
[2024-10-19 07:37] LABS: Hematocrit 41.4 % (37.0-47.0); Hemoglobin 14.3 g/dL (12.0-16.0); Mean Corp Hgb Conc. 34.5 g/dL (33.0-37.0); Mean Corpuscular Hgb 33.5 pg (27.0-31.0); Mean Platelet Volume 9.7 fL (7.4-10.4); Platelet Count 148 10^3/uL (130-400); Red Blood Cell Count 4.27 10^6/uL (4.20-5.40); Red Cell Dist. Width 12.8 % (11.5-14.5); White Blood Cell Count 5.6 10^3/uL (4.8-10.8)
[2024-10-19 07:39] VITALS: BP 125/68
[2024-10-19 07:58] LABS: Blood Urea Nitrogen 14 mg/dl (7-17); Calcium 9.6 mg/dl (8.4-10.2); Carbon Dioxide 31 mmol/L (22-30); Chloride 104 mmol/L (98-107); Estimated Creatinine Clearance 82 ml/min; Glucose 108 mg/dl (70-99); Potassium 4.5 mmol/L (3.5-5.1); Sodium 140 mmol/L (135-145); eGFR > 60.00
[2024-10-19] MEDS: VITAMIN B-12 1000 MCG PO (08:18)
[2024-10-19] MEDS: NORVASC 5 MG PO (08:18)
[2024-10-19] MEDS: PLAVIX 75 MG PO (08:18)
[2024-10-19] MEDS: LOW STRENGTH ASPIRIN 81 MG PO (08:18)
[2024-10-19] MEDS: CELEXA 20 MG PO (08:18)
[2024-10-19] MEDS: LIPITOR 80 MG PO (08:18)
[2024-10-19] MEDS: TYLENOL 650 MG PO (08:29)
--- NOTE | 2024-10-19 10:30 | W.PN.HOSP.TC ---
Today's Communication/Plan
-
Discharge
Assessment / Plan
Assessment / Plan
64-year-old female past medical history of hypertension, hyperlipidemia presented sudden onset left hand. She was not candidate elected to go home after exhaustive workup came back negative. She returned to the ER later she had some clumsiness and
continued that has since improved. Head CT, head and neck CTA all negative for acute etiology of left arm weakness.
Acute ischemic stroke
-NIHSS 0
-received DAPL loading dose in ED during first visit
-No TNK per prior Neuro eval
-Head CT and head and neck CTA (-) for acute etiology
-Continue ASA 81 daily and 21 days plavix
-Continue atorvastatin
-Neurology consulted
-Repeat echo normal
-MRI findings
1. 1.4 cm ACUTE ISCHEMIC INFARCT in the cortical luis matter of the posterior-inferior RIGHT FRONTAL LOBE containing mild cytotoxic edema.
2. Mild diffuse cerebral and cerebellar volume loss.
3. 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
4. Small disc herniations in the cervical spine causing minimal spinal cord compression.
-Follow up with cardiology for potential cardiac etiology
B12 deficiency
-Supplement
HTN urgency
-Spontaneously improved without IV labetalol
-Cont amlodipine
Hypothyroidism
-Cont levothyroxine
Smoking
-education on smoking cessation
DVT SCD
Full Code
Discharge today with PT script and instructions to follow up with gear room keeper for further eval.
Anticipated Discharge: Today
Subjective/Interval History
-
Date of Service: October 19, 2024
Objective Data
-
Labs:
Laboratory Results
10/19/24
07:05
WBC 5.6
Hgb 14.3
Hct 41.4
Plt Count 148
Sodium 140
Potassium 4.5
Chloride 104
Carbon Dioxide 31 H
BUN 14
Creatinine 0.8
Glucose 108 H
Calcium 9.6
Vital Signs:
Vital Signs
Temp Pulse Resp BP Pulse Ox
98.0 F 59 17 125/68 98
10/19/24 07:39 10/19/24 08:18 10/19/24 07:39 10/19/24 08:18 10/19/24 07:39
Review of Systems
-
History Source: Patient
Constitutional: Reports No Symptoms
EENT: Reports No Symptoms Reported
Respiratory: Reports No Symptoms
Cardiac: Reports No Symptoms
Abdomen/GI: Reports No Symptoms
Neuro: Reports No Symptoms
Physical Exam
-
General: Well Developed, No Apparent Distress and Comfortable
HEENT: Normocephalic
Respiratory: Clear to Auscultation
Cardiac: Regular Rhythm and S1/S2
GI: Soft, Nontender, Nondistended and Normal Bowel Sounds
Musculoskeletal: No Edema
Neuro: AO x 3, Nonfocal/Grossly Intact, Central Nerve's Intact and No Sensory Deficits; Negative No Motor Deficits, Tremors, Slurred Speech or Facial Droop
Psych: Calm
[2024-10-19 11:21] VITALS: BP 148/75
--- NOTE | 2024-10-19 12:25 | W.DCSUMMARY ---
Documented by User: Lily Moon MD, Resident 10/19/24 12:28
Discharge Summary
Discharge Data
Date of Admission: 10/19/24
Date of Discharge: 10/19/24
-
Pending Results: No
Hospital Course
Primary diagnosis:
Transient ischemic attack
Secondary diagnosis:
Hypertension
Hyperlipidemia
Hypothyroidism
Depression
Hospital course:
64-year-old female presented to [place] ED on 10/17/2024 for sudden onset left upper extremity weakness and possible left face weakness onset. Stroke alert was called and neurology consulted. Head CT was negative for acute finding. Head and
neck CTA unremarkable for acute cause. Neurology evaluated patient and deemed not a candidate for TNK. Provided aspirin and Plavix loading dose. As patient felt clinically stable, through shared decision making went home from ED. She later
returned that evening with continuation of the left arm weakness. Symptoms improved overnight. NIH score 0. MRI ordered in AM revealed 1.4 cm scute ischemic infarct in right frontal lobe. Pt had extensive cardiac work up January of 2024 including
Echo and exercise stress test. Repeat echo was ordered with normal findings.
Today, patient is clinically stable for discharge. NIH stroke score 0. Continue Plavix for the next 21 days, baby aspirin 81 indefinitely, atorvastatin 80. Recommend smoking cessation as risk factor for stroke. Recommend follow up with
design technology professor for further evaluation likely including a Holter monitor.
Imaging:
Brain MRI 10/18/2024
1. 1.4 cm ACUTE ISCHEMIC INFARCT in the cortical luis matter of the posterior-inferior RIGHT FRONTAL LOBE containing mild cytotoxic edema.
2. Mild diffuse cerebral and cerebellar volume loss.
3. 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
4. Small disc herniations in the cervical spine causing minimal spinal cord compression.
Discharge Plan
-
Patient Disposition: Home (Routine Discharge)
Discharge Diagnosis/Procedures: Acute Ischemic Infarct
Condition: Good
Diet: As tolerated
Activity: No restrictions
Driving Restrictions: As prior to admission
Bathing Restrictions: None
Instructions: Stroke (DC)
Referrals:
Werner Buchanan MD [Active] - in four to six weeks
Costa Pandya, DO [Family Provider] - in less than 1 week
Tanner Meeks MD [Active] - in less than 1 week (Eval for potential cardiac etiology for recent stroke )
Additional Discharge Medication Instructions: Continue plavix until 11/07/24 (21 days of plavix total since start on 10/17) then stop. Cont baby asa and statin with goal LDL <70. See design technology professor for further evaluation of cardiac cause for stroke. Use
PT script for any PT place near you for further improvement of slight weakness.
Prescriptions:
New
aspirin 81 mg Tablet,Chewable
81 mg PO DAILY Qty: 30 0RF
cyanocobalamin (vitamin B-12) [Vitamin B-12] 1,000 mcg Tablet
1,000 mcg PO DAILY Qty: 30 0RF
Continued
citalopram 20 MG tablet
20 mg PO DAILY
levothyroxine 112 MCG tablet
112 mcg PO DAILY
ibuprofen 200 mg Tablet
400 mg PO Q6HPRN PRN (Reason: mild pain)
clopidogrel [Plavix] 75 mg tablet
75 mg PO DAILY Qty: 30 3RF
Rx Instructions:
started in ED previous visit 10/17
atorvastatin 80 mg tablet
80 mg PO DAILY Qty: 30 2RF
amlodipine [Norvasc] 5 mg Tablet
5 mg PO DAILY Qty: 0 0RF
Rx Instructions:
started in ED 10/17
Discharge Orders:
Discharge Patient (As Directed); Ordered 10/19/24
Ordered By: Lily Moon
Discharge Date and Time
Discharge Date/Time: 10/19/24 13:11
Print Language: VENEZUELAN

Documented by User: James Pitt DO 10/19/24 14:04
Discharge Summary
Discharge Data
Date of Admission: 10/19/24
Date of Discharge: 10/19/24
Total time spent discharging patient (in min): 35
Hospital Course
Primary diagnosis:
Acute stroke, right frontal lobe
Secondary diagnosis:
Hypertension
Hyperlipidemia
Hypothyroidism
Depression
Hospital course:
64-year-old female presented to [facility] ED on 10/17/2024 for sudden onset left upper extremity weakness and possible left face weakness onset. Stroke alert was called and neurology consulted. Head CT was negative for acute finding. Head and
neck CTA unremarkable for acute cause. Neurology evaluated patient and deemed not a candidate for TNK. Provided aspirin and Plavix loading dose. As patient felt clinically stable, through shared decision making went home from ED. She later
returned that evening with continuation of the left arm weakness. Symptoms improved overnight. NIH score 0. MRI ordered in AM revealed 1.4 cm scute ischemic infarct in right frontal lobe. Pt had extensive cardiac work up January of 2024 including
Echo and exercise stress test. Repeat echo was ordered with normal findings.
Today, patient is clinically stable for discharge. NIH stroke score 0. Continue Plavix for the next 21 days, baby aspirin 81 indefinitely, atorvastatin 80. Recommend smoking cessation as risk factor for stroke. Recommend follow up with
design technology professor for further evaluation likely including a Holter monitor.
Imaging:
Brain MRI 10/18/2024
1. 1.4 cm ACUTE ISCHEMIC INFARCT in the cortical luis matter of the posterior-inferior RIGHT FRONTAL LOBE containing mild cytotoxic edema.
2. Mild diffuse cerebral and cerebellar volume loss.
3. 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
4. Small disc herniations in the cervical spine causing minimal spinal cord compression.
Discharge Plan
-
Patient Disposition: Home (Routine Discharge)
Discharge Diagnosis/Procedures: Acute Ischemic Infarct
Condition: Good
Diet: As tolerated
Activity: No restrictions
Driving Restrictions: As prior to admission
Bathing Restrictions: None
Instructions: Stroke (DC)
Referrals:
Werner Buchanan MD [Active] - in four to six weeks
Costa Pandya DO [Family Provider] - in less than 1 week
Tanner Meeks MD [Active] - in less than 1 week (Eval for potential cardiac etiology for recent stroke )
Additional Discharge Medication Instructions: Continue plavix until 11/07/24 (21 days of plavix total since start on 10/17) then stop. Cont baby asa and statin with goal LDL <70. See design technology professor for further evaluation of cardiac cause for stroke. Use
PT script for any PT place near you for further improvement of slight weakness.
Prescriptions:
New
aspirin 81 mg Tablet,Chewable
81 mg PO DAILY Qty: 30 0RF
cyanocobalamin (vitamin B-12) [Vitamin B-12] 1,000 mcg Tablet
1,000 mcg PO DAILY Qty: 30 0RF
Continued
citalopram 20 MG tablet
20 mg PO DAILY
levothyroxine 112 MCG tablet
112 mcg PO DAILY
ibuprofen 200 mg Tablet
400 mg PO Q6HPRN PRN (Reason: mild pain)
clopidogrel [Plavix] 75 mg tablet
75 mg PO DAILY Qty: 30 3RF
Rx Instructions:
started in ED previous visit 10/17
atorvastatin 80 mg tablet
80 mg PO DAILY Qty: 30 2RF
amlodipine [Norvasc] 5 mg Tablet
5 mg PO DAILY Qty: 0 0RF
Rx Instructions:
started in ED 10/17
Discharge Orders:
Discharge Patient (As Directed); Ordered 10/19/24
Ordered By: Lily Moon
Discharge Date and Time
Discharge Date/Time: 10/19/24 13:11
Print Language: VENEZUELAN
[2024-10-19 12:28] VITALS: BP 148/75
--- NOTE | 2024-10-19 12:55 | PTCARENOTE ---
Rn Flow oncology patient navigator- Patient cleared for d/c.
--- NOTE | 2024-10-19 12:59 | CM ---
Cm reviewed medical records. Plan for discharge to home with outpatient PT.
PLAN: HOme with outpatient PT.
== END 2024-10-19 13:11 | disposition home or self-care (01) | DRG 66 ==
LOC: 1 ACUTE 10:47
PROVIDERS: ADMITTING PHYSICIAN Internal Medicine; ATTENDING PHYSICIAN Internal Medicine; CONSULT PHYSICIAN Psychiatry & Neurology Clinical Neurophysiology; EMERGENCY PHYSICIAN Emergency Medicine; FAMILY PHYSICIAN Family Medicine
DX: I63.9 Cerebral infarction, unspecified (principal); I10 Essential (primary) hypertension; I16.0 Hypertensive urgency; E03.9 Hypothyroidism, unspecified; F32.A Depression, unspecified; E55.9 Vitamin D deficiency, unspecified; F17.200 Nicotine dependence, unspecified, uncomplicated; E78.00 Pure hypercholesterolemia, unspecified
CPT/HCPCS: 70450; 70496; 70498; 70551; 80048; 80053; 80061; 82607; 82728; 82746; 82962; 84443; 84484; 85025; 85027; 93005; 93306; 97112; 97162; 97166; 99285; 99406; Q9967

== ENCOUNTER 2024-10-23 12:11 | Emergency (ER) | payer MEDICARE, SELFPAY ==
[2024-10-23 12:14] VITALS: BP 148/80
[2024-10-23] MEDS: FLEXERIL 10 MG PO (12:48)
[2024-10-23] MEDS: LIDOCAINE 4% PATCH 1 PATCH TOPICAL (12:48)
--- NOTE | 2024-10-23 12:53 | ED.GENMED ---
History of Present Illness
General
Chief Complaint: Head Injury
Time Seen by Provider: 10/23/24 12:24
History of Present Illness
History of Present Illness:
64-year-old female with recent diagnosis of CVA on Plavix presenting after a fall. Patient was recently admitted to the hospital where she was found to have a right temporal ischemic stroke. At that time was having some numbness to her left arm
which has subsided. Last night, she was out at a bar and was drinking. She admits to drinking a lot of alcohol and subsequently fell after tripping. She hit the back of her head on the pavement. She also reports striking her lower back. Reports
pain to her right lumbar region. Denies changes in vision. Denies any significant headache. Denies any new numbness or tingling to extremities or any weakness. Denies chest pain, difficulty breathing, abdominal pain. Denies additional acute
medical complaints
Past History
Past History
ED Past Medical History: Hypothyroidism
ED Past Surgical History: None
Patient has exhibited threatening behavior?: No
Social History
Tobacco: Smoker
Alcohol: Occasional
Drug: None
Personal:
Living: with family
Employment: Employed
Phy Exam
Physical Exam
Physical Exam:
General: Well-appearing, no clinical signs of dehydration, nontoxic and in no acute distress
Head: Atraumatic
HEENT: protecting airway
Neck: appears supple, no midline tenderness
CV: Normal heart rate, regular rhythm
Resp: No accessory muscle use, no increased work of breathing, lungs clear to auscultation bilaterally
Abd: Soft and non-distended, no tenderness to palpation
Extremities: No deformities, no swelling. Mild tenderness to the right lumbar musculature. No midline tenderness to the back. No ecchymosis
Neuro: alert, no focal neurologic deficit
: deferred
Rectal: deferred
Psych: Normal affect
Skin: Intact
Course
Orders/Labs/Results
Orders:
Orders
10/23/24 12:[address] [CT Head W/o Iv Contrast] Urgent
Comment:
Reason For Exam: fall on plavix
10/23/24 12:44
Cyclobenzaprine HCl [Flexeril] 10 mg PO NOW STA
Lidocaine [Lidocaine 4% Patch] 1 patch TOPICAL ONCE ONE
Apply Lidocaine patch(s) to:: right lumbar
Vital Signs
Initial and Last Documented VS:
Initial Vital Signs
Temp Pulse Resp BP Pulse Ox
98.5 F 77 16 148/80 98
10/23/24 12:14 10/23/24 12:14 10/23/24 12:14 10/23/24 12:14 10/23/24 12:14
Last Documented Vital Signs
Temp Pulse Resp BP Pulse Ox
98.5 F 66 16 123/77 98
10/23/24 12:14 10/23/24 12:47 10/23/24 12:47 10/23/24 14:07 10/23/24 14:08
MDM/Problems Addressed
MDM/Problems Addressed:
64-year-old female with recent diagnosis of ischemic stroke presenting to the emergency department after a fall after drinking alcohol with head strike. Vital signs on arrival are normal.
On exam patient is resting comfortably, no acute distress or discomfort. She is awake, alert, oriented. No physical signs of trauma. No focal neurologic deficits. Do suspect that fall was secondary to EtOH. In the setting of alcohol and Plavix,
will obtain CT brain imaging. Regarding her back pain, appears musculoskeletal in quality, reproducible tenderness to the musculature of the lumbar back. No midline tenderness. No concern for spinal trauma. For therapeutics, will administer
cyclobenzaprine and muscle relaxer.
14'15 - CT brain is negative for acute intracranial normality. Patient remained stable. Feel stable for discharge. Did caution against alcohol usage on thinners. Will prescribe muscle relaxer. Toradol administered for back pain. Return
precautions discussed and patient verbalized understanding
*Critical Care Note
Total Time (30-74mins, 75-104mins- exclusive of procedures): Not Applicable
ED Attending Note
-
Portions of this chart may have been created with voice recognition software.� Occasional wrong word or��sound alike� substitutions may have occurred due to the inherent limitations of voice recognition software.
Discharge Plan
Departure
Patient with high blood pressure during this ER visit?: Yes
Condition: Good
Discharge Problem:
Minor head injury, Lumbar back sprain
Instructions: Low back pain in adults, Head Injury in Adults (DC), BLOOD PRESSURE
Prescriptions:
No Action
citalopram 20 MG tablet
20 mg PO DAILY
levothyroxine 112 MCG tablet
112 mcg PO DAILY
ibuprofen 200 mg Tablet
400 mg PO Q6HPRN PRN (Reason: mild pain)
clopidogrel [Plavix] 75 mg tablet
75 mg PO DAILY Qty: 30 3RF
Rx Instructions:
started in ED previous visit 10/17
atorvastatin 80 mg tablet
80 mg PO DAILY Qty: 30 2RF
aspirin 81 mg Tablet,Chewable
81 mg PO DAILY Qty: 30 0RF
cyanocobalamin (vitamin B-12) [Vitamin B-12] 1,000 mcg Tablet
1,000 mcg PO DAILY Qty: 30 0RF
amlodipine [Norvasc] 5 mg Tablet
5 mg PO DAILY Qty: 0 0RF
Rx Instructions:
started in ED 10/17
Activity Restrictions/Additional Instructions:
You were seen in the emergency department for a fall
You were found to have a normal CT of your brain. You also were found to have strain to your right lower back. Please take Tylenol or Motrin as needed for pain. You were prescribed a muscle relaxer. These medications can make you sleepy, so do
not drink alcohol while consuming and do not operate a vehicle after taking the medication
Please follow-up closely with your primary care physician.
Return to the emergency department for any worsening of your symptoms, or any development of chest pain, difficulty breathing, abdominal pain with persistent vomiting and inability to tolerate food or liquid by mouth (concern for dehydration),
weakness, headache or confusion, fever greater than 100.4, or any additional symptoms that are concerning to you.
Thank you for choosing [facility].
Interventions
Interventions:
*Risk Screen - Suicide Last Done: 10/23/24 12:14
*General Assessment Last Done: 10/23/24 12:14
*ED- Fall Risk Assessment Last Done: 10/23/24 12:14
*ED COVID-19 Vaccine History Last Done: 10/23/24 12:14
ED- Neurological Assessment Last Done: 10/23/24 12:44
ED-Skin Assessment Last Done: 10/23/24 12:44
Discharge Date and Time
Print Language: ITALIAN
[2024-10-23 14:07] VITALS: BP 123/77
[2024-10-23] MEDS: TORADOL 15 MG IM (14:20)
== END 2024-10-23 14:22 | disposition home or self-care (01) ==
LOC: EMR 12:11
PROVIDERS: EMERGENCY PHYSICIAN Student in an Organized Health Care Education/Training Program; FAMILY PHYSICIAN Family Medicine
DX: S09.90XA Unspecified injury of head, initial encounter (principal); S33.5XXA Sprain of ligaments of lumbar spine, initial encounter; F10.90 Alcohol use, unspecified, uncomplicated; W01.0XXA Fall on same level from slipping, tripping and stumbling without subsequent striking against object, initial encounter; R03.0 Elevated blood-pressure reading, without diagnosis of hypertension; E03.9 Hypothyroidism, unspecified; F17.200 Nicotine dependence, unspecified, uncomplicated; Z79.02 Long term (current) use of antithrombotics/antiplatelets; Z86.73 Personal history of transient ischemic attack (TIA), and cerebral infarction without residual deficits
CPT/HCPCS: 99284; 96372; 70450

== ENCOUNTER → 2024-10-27 08:34 | Outpatient (REF) | payer MEDICARE, SELFPAY | LOC: RAD 08:34 | PROVIDERS: ATTENDING PHYSICIAN Family Medicine | DX: M54.50 Low back pain, unspecified (principal) | CPT/HCPCS: 71101; 72110 ==

== ENCOUNTER → 2024-11-22 20:37 | Outpatient (REF) | payer MEDICARE, SELFPAY | LOC: MRI 3T 20:37 | PROVIDERS: ATTENDING PHYSICIAN Physician Assistant; FAMILY PHYSICIAN Family Medicine | DX: M54.50 Low back pain, unspecified (principal); M54.16 Radiculopathy, lumbar region; S32.010A Wedge compression fracture of first lumbar vertebra, initial encounter for closed fracture | CPT/HCPCS: 72148 ==

== ENCOUNTER → 2024-12-10 07:02 | Day surgery (SDC) | payer MEDICARE, SELFPAY ==
[2024-12-10 08:09] VITALS: BMI 33.5
--- NOTE | 2024-12-10 14:33 | ITS.CL.IMPLP ---
Medical Technologist Hematology - Implant Loop
Implant Loop
Procedure Report:
Date of Procedure: December 10, 2024.
Procedure: Insertable Loop Recorder Implant.
Indication: Embolic stroke of unknown source.
Performing physician: Tanner Meeks MD, [facility].
Implant: [employer]onic; Reveal LINQII; Model# [id number]; Serial# [id number].
Technique: The patient was prepped and draped in the usual fashion. A time-out was performed. No intravenous sedation was administered. Local anesthetic was applied to the left pre-pectoral subcutaneous tissue. Using the insertion kit an incision
was made left of the midline in the fourth intercostal space and the device was implanted subcutaneously and directed towards the nipple. Hemostasis was excellent. The skin was closed with steri-strips. The estimated blood loss was less than 1 ml.
There were no complications. No fluoroscopy. R waves measured 0.51 mV and P waves were visible.
Final Programming: Detections: Afib, tachy at 160 bpm, hugo at 30 bpm, pause at 3 sec.
Conclusion: Uncomplicated insertable loop implant.
Recommendation: Routine post-insertable loop care. The device is MRI conditional without a waiting period and up to 3 Mary.
cc: Amber Song MD ([facility]).
== END | disposition home or self-care (01) ==
LOC: CATH 07:02
PROVIDERS: ATTENDING PHYSICIAN Student in an Organized Health Care Education/Training Program; FAMILY PHYSICIAN Family Medicine; OTHER PHYSICIAN Internal Medicine Cardiovascular Disease
DX: Z09 Encounter for follow-up examination after completed treatment for conditions other than malignant neoplasm (principal); Z86.73 Personal history of transient ischemic attack (TIA), and cerebral infarction without residual deficits; I34.0 Nonrheumatic mitral (valve) insufficiency; Z79.82 Long term (current) use of aspirin; Z79.899 Other long term (current) drug therapy; Z79.890 Hormone replacement therapy; Z79.891 Long term (current) use of opiate analgesic
CPT/HCPCS: 33285; 93312; 93320; 93325; C1764

== ENCOUNTER → 2024-12-14 07:45 | Outpatient (REF) | payer MEDICARE, SELFPAY | LOC: HWRAD 07:45 | PROVIDERS: ATTENDING PHYSICIAN Obstetrics & Gynecology; FAMILY PHYSICIAN Family Medicine | DX: N83.202 Unspecified ovarian cyst, left side (principal); R10.2 Pelvic and perineal pain | CPT/HCPCS: 76830; 76856 ==

== ENCOUNTER → 2025-05-06 09:26 | Outpatient (REF) | payer MEDICARE, SELFPAY | LOC: HWRAD 09:26 | PROVIDERS: ATTENDING PHYSICIAN Family Medicine | DX: F17.210 Nicotine dependence, cigarettes, uncomplicated (principal) | CPT/HCPCS: 71271 ==

== ENCOUNTER → 2025-06-06 09:47 | Outpatient (REF) | payer MEDICARE, SELFPAY ==
[2025-06-06 11:01] LABS: ALT (SGPT) 28 U/L (0-35); AST (SGOT) 22 U/L (14-36); Albumin 4.2 g/dl (3.5-5.0); Alkaline Phosphatase 86 U/L (38-126); Blood Urea Nitrogen 13 mg/dl (7-17); Calcium 9.2 mg/dl (8.4-10.2); Carbon Dioxide 30 mmol/L (22-30); Chloride 106 mmol/L (98-107); Glucose 96 mg/dl (70-99); HDL Cholesterol 53 mg/dl; LDL Cholesterol, Calculated 86 mg/dl; Potassium 4.4 mmol/L (3.5-5.1); Sodium 141 mmol/L (135-145); Total Protein 7.0 g/dl (6.3-8.2); Very Low Density Lipoprotein 19 mg/dl (0-30); eGFR > 60.00
== END ==
LOC: REG 09:47
PROVIDERS: FAMILY PHYSICIAN Family Medicine
DX: R74.01 Elevation of levels of liver transaminase levels (principal); E78.2 Mixed hyperlipidemia
CPT/HCPCS: 36415; 80053; 80061

== ENCOUNTER → 2025-06-07 09:39 | Outpatient (REF) | payer MEDICARE, SELFPAY ==
--- NOTE | 2025-06-07 11:39 | CARDSERVLU ---
Echocardiogram with Lumason completed after protocol screening completed. Allergies verified.
Patent IV site: _new start 20 P LAC____
IV site flushed with 0.9% NaCl pre and post administration.
Diluted bolus method utilized to enhance visualization of ventricular duncan.
Total volume given: _3.0+3.0___ mL
Here for image enhanced stress echo
site dcd at completion of testing.
Patient tolerated all procedures well without complications.
== END ==
LOC: RCS 09:39
PROVIDERS: ATTENDING PHYSICIAN Internal Medicine Cardiovascular Disease; FAMILY PHYSICIAN Family Medicine
DX: R07.9 Chest pain, unspecified (principal)
CPT/HCPCS: 93017; 93350; Q9950

== ENCOUNTER → 2025-06-16 13:45 | Outpatient (REF) | payer MEDICARE, SELFPAY | LOC: HWWDC 13:45 | PROVIDERS: FAMILY PHYSICIAN Family Medicine | DX: Z12.31 Encounter for screening mammogram for malignant neoplasm of breast (principal) | CPT/HCPCS: 77063; 77067 ==

== ENCOUNTER → 2025-07-06 09:55 | Outpatient (REF) | payer MEDICARE, SELFPAY | LOC: RAD 09:55 | PROVIDERS: ATTENDING PHYSICIAN Family Medicine | DX: Z13.820 Encounter for screening for osteoporosis (principal); S32.010S Wedge compression fracture of first lumbar vertebra, sequela; M81.0 Age-related osteoporosis without current pathological fracture | CPT/HCPCS: 77080 ==